=== PATIENT | female | born 1950 | race Caucasian/White ===

== ENCOUNTER → 2016-09-08 | Outpatient (CLI) | payer BC ==
[~2016-09-08] MED LIST: ALAWAY10 ML OU; CENTRUM SILVER1 EAC1 PO; CIPRO DPS500 MG PO; CLARITIN DPS10 MG PO; FLAGYL-DPS500 MG PO; FLONASE 0.05% D16 GM NS; PATANOL 0.1%5 ML OU; PROAIR HFA8.5 GM IH; TYLENOL DPS325 MG PO; VITAMIN B122500 MCG PO; ZOFRAN8 MG PO
--- NOTE | ~2016-09-08 | ECH ---
Transthoracic Echocardiography Report (TTE) Demographics Patient Name GRANT ORDAZ Date of Study 09/08/2016 E Patient Number [id number] Visit Number [id number] Date of 1950 Room Number Accession Number [id number] Gender Female Age 65 year(s) Referring Perry Cool Fusing Line Inspector Kamilah Bo Physician Sunil Diaz MD RUST Physician Interpreting Sunil Diaz MD Healthcare Economics Consultant Physician Supervising Ordering Physician Sunil Diaz MD, MD/P Nurse Stress Metal Roaster Conclusions Summary Technically adequate exam. The estimated left ventricular ejection fraction is 60%. Diastolic assessment reveals Grade I diastolic dysfunction. No significant valvular abnormalities. Procedure Type of Study TTE procedure:Echo Complete SF. Procedure Date Date: 09/08/2016 Start: 01:24 PM Technical Quality: Adequate visualization Indications:Chest pain and Dyspnea. Appropriate Use Criteria: 9 Height: 60 inches Weight: 145 pounds BSA: 1.63 m Rhythm: Within normal limits HR: 65 bpm BP: 138/76 mmHg M-Mode/2D Measurements LV Diastolic Dimension: 4.51 cm LV Systolic Dimension: 3.25 cm LV Septum Diastolic: 0.83 cm LV PW Diastolic: 0.87 cm AO Root Dimension: 3 cm Cardiac Output: 4.36 l/min LA Dimension: 2.98 cm Cardiac Index: 2.67 l/min*m RV Diastolic Dimension: 3.17 cm LA volume index: 18 ml/m LVOT: 1.92 cm LVOT VTI: 23.17 cm RV Base: 3 cm LV Stroke volume: 67.05 ml RV Mid: 2.4 cm LV Stroke volume index: 41.13 ml/m TAPSE: 2.5 cm TDI-S': 10 cm/s Doppler Measurements AV Peak Velocity: 1.6 m/s MV Peak E-Wave: 0.7 m/s AV Peak Gradient: 10.24 mmHg MV Peak A-Wave: 1.16 m/s AV Mean Gradient: 5.65 mmHg MV E/A Ratio: 0.61 LVOT Peak Velocity: 1.29 m/s MV P1/2t: 57.7 msec AV Area (Continuity):2.15 cm MV Deceleration Time: 203.1 msec TR Velocity:2.21 m/s MV Area (PHT): 3.81 cm TR Gradient:19.54 mmHg PV Peak Velocity: 0.97 m/s Estimated RAP:3 mmHg PV Peak Gradient: 3.78 mmHg Estimated RVSP: 23 mmHg Estimated PASP: 22.54 mmHg E' Septal Velocity: 0.07 m/s A' Septal Velocity: 0.1 m/s E' Lateral Velocity: 0.08 m/s A' Lateral Velocity: 0.14 m/s RA Area: 15.42 cm Findings Left Ventricle Normal left ventricle size and function. Diastolic assessment reveals Grade I diastolic dysfunction. Right Ventricle Normal right ventricle structure and function. Left Atrium Normal left atrial size. Right Atrium Normal right atrial size. Mitral Valve Normal mitral valve structure and function. Trivial mitral regurgitation by color Doppler. Aortic Valve Normal aortic valve structure and function. Tricuspid Valve Normal tricuspid valve structure and function. Trivial tricuspid regurgitation by color Doppler. Normal pulmonary pressures. Pulmonic Valve The pulmonic valve is not well visualized. Pericardial Effusion No evidence of pericardial effusion. Miscellaneous Visualized portions of the aortic root and ascending aorta appear normal in size. Pleural Effusion No evidence of pleural effusion. Signature
== END | disposition home or self-care (01) ==
LOC: CARD 13:00
DX: R07.9 Chest pain, unspecified (principal); R06.00 Dyspnea, unspecified

== ENCOUNTER 2016-09-09 05:35 | Day surgery (SDC) | payer BC ==
[~2016-09-09] VITALS: Ht 154.9 cm; Wt 66.3 kg
--- NOTE | ~2016-09-09 | CATH ---
Cardiac Diagnostic Report Demographics Patient Name ANDERSON RODRIGUEZ Gender Female GRANT Garcia Date of 1950 Age 65 year(s) Patient Number [id number] Date of Study 09/09/2016 Visit Number [id number] Room Number Corporate ID Ht 154.94 cm Wt 66.22 kg Accession Number [id number] BSA 1.65 m kg/m Referring Sunil Diaz MD Primary Physician Physician Performing Sunil Diaz MD Secondary Physician Physician Diagnostic Sunil Diaz MD Assisting Physician Physician Interventional Physician Land Appraiser Physician Findings and Conclusions Diagnostic Findings and Conclusion Normal coronary arteries. Diagnostic Recommendations Ongoing risk factor modification to prevent CAD. Medical management of hypertension and hyperlipidemia. Procedure Description The patient was brought to the diagnostic cardiac catheterization laboratory in the fasting, non-sedated state. Informed consent was obtained in the written and verbal form after the risks and benefits were explained. The patient had no further questions and agreed to proceed. The planned puncture-incision site(s) were shaved and prepped with ChloraPrep and draped in the usual sterile manner. Conscious sedation, supplemental oxygen, and pain control medications were delivered by a registered nurse under physician guidance. Surface ECG rhythm, blood pressure measurement, and pulse oximetry were monitored throughout the procedure. Arterial access. The right radial access site was infiltrated with lidocaine. The vessel was entered with the Seldinger technique. A 6 Fr sheath was advanced into the vessel and used for catheter placement. Selective left coronary angiography. A JL3.5 catheter was advanced into the left coronary vessel ostium under Fluoroscopic guidance. Contrast was injected by hand. Images were obtained in multiple projections. Left heart catheterization. A FR4 catheter was advanced across the aortic valve to the left ventricle under fluoroscopic guidance. Resting hemodynamics were obtained. Selective right coronary angiography. A FR 4 catheter was advanced into the right coronary vessel ostium under fluoroscopic guidance. Contrast was injected by hand. Images were obtained in multiple projections. Arterial artery hemostasis was achieved with 10 cc air in a TR Band. The patient was transferred back to Short Stay Surgery via cart accompanied by a nurse. The patient left the laboratory in stable condition. Diagnostic Cath Status: Elective Procedure Procedure Type Diagnostic procedure:Angiography:, Coronary Angios w/[facility] Indications: Chest pain, Dyspnea with exertion, Hyperlipidemia and Hypertension. The procedure was explained in detail to the patient. Risks, complications and alternative treatments were reviewed. Written consent was obtained. Medications Reviewed with Patient prior to Procedure. Complications: No Complication. Angiographic Findings Dominance: Right Cardiac Arteries and Lesion Findings LMCA: Normal (0% Stenosis). LAD: Normal (0% Stenosis). LCx: Normal (0% Stenosis). RCA: Normal (0% Stenosis). Procedure Data Procedure Date Date: 09/09/2016Start: 07:14 End: 07:41 Entry Locations - Percutaneous access was performed through the Right Radial artery (Primary location). A 6 Fr sheath was inserted. Hemostasis was successfully obtained using a TR band. Procedure Medications Order and Administration + + +-------+-------+ !Time !Medication !Dosage !Route ! + + +-------+-------+ !09/09/2016 !Versed !1 mg !I.V. ! !07:15 ! ! ! ! + + +-------+-------+ !09/09/2016 !Fentanyl !25 mcg !I.V. ! !07:10 ! ! ! ! + + +-------+-------+ !09/09/2016 !Versed !1 mg !I.V. ! !07:10 ! ! ! ! + + +-------+-------+ !09/09/2016 !SF Radial Cocktail: 200mcg Nitro, 2.5 mg ! !I.A. ! !07:17 !Verapamil, 5000u Heparin ! ! ! + + +-------+-------+ !09/09/2016 !Oxygen !4 l/min!NC ! !07:20 ! ! ! ! + + +-------+-------+ Devices Used - ACATH 6FR FL3.5 CATHETER 100CMwas used for:Left coronary angiography. - ACATH 6F FR4 CATHETER 100CMwas used for:LV Pressures. - ACATH 6F FR4 CATHETER 100CMwas used for:Right coronary angiography. Contrast Material - Isovue 21102 ml Fluoroscopy Time: Diagnostic: 2:24 minutes. Total: 2:24 minutes. Fluoroscopy Dose: Diagnostic: 243 mGy. Total: 243 mGy. Estimated Blood Loss: 5 ml. Medical History Performed Procedures and Imaging Results - Standard exercise stress testwas performed on 09/01/2016. Results were: Negative. Allergies - Other:(Hydrocodone). - Other:(Oxycodone). Risk Factors The patient risk factors include:hypercholesterolemia, hypertension, last creatinine: 0.7 mg/dl, creatinine clearance: 83.77 ml/min and dyslipidemia. Admission Data Admission Date: 09/09/2016 Admission Time: 05:35 Insurance Payors: [employer] ([employer] insurance. Clinical Evaluation Leading to Procedure Diagnosed on 09/04/2016 12:14 . - The patient's CAD presentation was assessed as: Unstable angina. 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 Anti-anginal medications were prescribed during the past two weeks. The medication is: Beta Blockers. - The patient has been in a state of heart failure within the past two weeks. - The patient's heart failure status was assessed as NYHA Class I, with CHF symptoms of CRUZ. Hemodynamics Condition: Rest O2 Consumption: Estimated: 149.35Heart Rate: 62 bpm Pressures (mmHg) +-----+ + !Site !Pressure ! +-----+ + !AO !91/46 (63) ! +-----+ + !LV !108/0 ,10 ! +-----+ + !AO !115/54 (81) ! +-----+ + !LV !105/1 ,10 ! +-----+ + Valve Gradients and Areas + +---------+---------+---------+ +---------+ + !Valve !Peak !Mean !Area !Index !Flow !Source ! + +---------+---------+---------+ +---------+ + !Aortic !0 !0 ! ! ! ! ! + +---------+---------+---------+ +---------+ + !Aortic !0 !0 ! ! ! ! ! + +---------+---------+---------+ +---------+ + Shunts Oxygen Values O2 Capacity 184.96 O2 Consumption 149.35 Discharge Data Discharge Date: 09/09/2016 Hospital Status: Outpatient Signatures
== END 2016-09-09 11:20 | disposition home or self-care (01) ==
LOC: SSS
PROC: 4A023N7 Measurement of Cardiac Sampling and Pressure, Left Heart, Percutaneous Approach (ICD-10-PCS; principal; 2016-09-09)
DX: I20.0 Unstable angina (principal); I10 Essential (primary) hypertension; E78.2 Mixed hyperlipidemia; Z88.5 Allergy status to narcotic agent